=== PATIENT | female | born 2005 | race Caucasian/White ===

== ENCOUNTER 2024-01-08 10:30 | Emergency (ER) | payer OTHER, SELFPAY ==
[2024-01-08 10:31] VITALS: BP 123/73; PULSE 91; RESP 16; TEMP 36.5; O2SAT 99
--- NOTE | 2024-01-08 10:41 | CT_ITS ---
STUDY: CT ABDOMEN AND PELVIS WITH CONTRAST REASON FOR EXAM: Female, 18 years old. RUQ abd pain RADIATION DOSAGE (If Supplied By Facility): CTDIvol = ( 12.42 ) mGy, DLP = ( 789.05 ) mGycm TECHNIQUE: IV 75mL Isovue-300 was administered. Transaxial images were obtained from the dome of the diaphragm to the symphysis pubis. Multiplanar coronal and sagittal images were reformatted. The protocol utilizes one or more of the following dose reduction techniques: automated exposure control, adjustment of mA and/or kV according to patient size,and/or use of iterative reconstruction technique. COMPARISON: No relevant prior comparison study available FINDINGS: The visualized lung bases are unremarkable. The visualized portions of the heart are within normal limits. Normal liver. Normal gallbladder and extrahepatic biliary system. Normal spleen. Normal pancreas. Normal bilateral adrenal glands. Distended stomach. Nonspecific fluid-filled small bowel loops without evidence of bowel obstruction. Ascending colon is also fluid-filled. Fecal retention. No evidence of acute diverticulitis. The appendix is visualized and appears normal. Normal abdominal aorta. No retroperitoneal adenopathy. Normal right kidney. Normal left kidney. Normal urinary bladder. No pelvic mass. Trace of free fluid in the pelvis. Normal abdominal wall. No demonstrated acute osseous changes. Small posterior spur at the level of T10-T11. CT/Abdomen/Pelvis W IV Cont ONLY IMPRESSION: 1. Nonspecific fluid-filled small bowel loops without evidence of small bowel obstruction could be due to enteritis or enterocolitis. 2. Distended stomach. 3. Otherwise no focal acute inflammatory process. Electronically Signed: Fernando Wright MD at 11:21 EDT ,
--- NOTE | 2024-01-08 10:42 | ED.VIS.GI ---
HPI HPI - GI History of Present Illness Chief Complaint: Abd Pain Informant: patient and parent Abdominal Pain/Flank Pain Onset: Today and Hours Context: Gradual Onset Timing: Intermittent Quality: Aching Location: RUQ Current Severity: Mild Maximum Severity: Mild Relieved by: Nothing Nausea/Vomiting/Emesis GI Symptom: Positive for Nausea Severity: Mild Diarrhea/Melena/Hematochezia GI Symptom: Negative for Diarrhea, Melena or Hematochezia Associated Symptoms Associated Symptoms: Negative for Dysuria, Frequency, Hematuria or Urgency Narrative Narrative: Healthy 8-year-old female. No prior abdominal surgeries. Today around 7 AM about 3 to 4 hours ago started having right upper quadrant abdominal pain. Worse with movement. Initially associated nausea. No vomiting or diarrhea. No constipation. Nausea is resolved. No fever or chills. No recent weight loss. No recent injury. No recent postprandial abdominal pain. She has never had any prior abdominal surgeries. Denies any dysuria. No vaginal bleeding or discharge. Last menstrual period about 3 weeks ago. No back pain. Prior similar symptoms: No Recent Illness/Hospitalization: No PFSH PFSH Medical History no medical history no medical history Home Medications ?Medication ?Instructions ?Recorded ?Last Taken ?Type NK 01/08/24 Unknown History Allergy/AdvReac Type Severity Reaction Status Date / Time No Known Allergies Allergy Verified 01/08/24 10:30 Surgical History no surgical history no surgical history Social History Smoking Status: Never smoker ROS ROS ED ROS Narrative Right upper quadrant abdominal pain. Constitutional Constitutional ED: Denies chills ENT ENT ED: Denies ear pain Cardiovascular Cardiovascular: Denies chest pain Respiratory/Chest Respiratory/Chest: Denies cough or dyspnea Gastrointestinal Gastrointestinal: Reports abdominal pain and nausea; Denies constipation, diarrhea, melena or vomiting Genitourinary Genitourinary ED: Denies dysuria, hematuria or urinary frequency Musculoskeletal Musculoskeletal: Denies arthralgias or back pain Integumentary Denies abscess or Abrasions Neurologic Neurologic: Denies headache(s) Psychiatric Psychiatric: Denies anxiety or depression Endocrine Endocrinology: Denies polydipsia Hematologic/Lymphatic Hematologic/Lymphatic: Denies easy bleeding or easy bruising Allergic/Immunologic Allergic/Immunologic ED: Denies mouth swelling, tongue swelling or urticaria EXAM Physical Exam Narrative Exam Narrative: 18-year-old female vital signs stable afebrile. H EENT exam unremarkable. Neck nontender no lymphadenopathy. Lungs clear to auscultation bilaterally. Heart regular rhythm no murmur rate about 90. Chest wall ribs nontender. Abdomen soft, nontender, nondistended, normal bowel sounds without peritoneal signs. She really has no Kerns sign. Minimal at best tenderness with deep palpation underneath her right rib cage. There is no chest wall pain. Left abdomen and right lower quadrant are completely nontender. There is no hernia or mass. No signs of trauma. No McBurney's point tenderness. Moving all 4 extremities. Nontender no edema. Back nontender. Neurologically patient is awake and alert no focal motor deficits. Const Vital Signs: 01/08/24 10:31 01/08/24 12:30 Temperature 97.7 F L Temperature Source Temporal Pulse Rate 91 64 Respiratory Rate 16 16 Blood Pressure 123/73 H 117/61 Blood Pressure Mean 89 79 Pulse Ox 99 97 Oxygen Delivery Method Room Air Room Air Positive well nourished and well developed; Negative for obese, cachectic, contractures or unkempt General Appearance ED: well developed and NAD; Negative for unkempt, cachectic, contractures or pallor Nutritional Appearance: Negative for cachectic or obese HEENT Reports moist mucous membranes normocephalic and atraumatic Eyes PERRL and EOMs intact bilaterally General Eye ED: Negative for pale conjunctiva Neck no lymphadenopathy, supple and no JVD General: Negative for tenderness Resp normal respiratory effort and clear to auscultation bilaterally Cardio regular rate, regular rhythm, S1 normal heart sound, S2 normal heart sound and no murmurs GI non-tender and no masses GI Narrative: Minimal if any tenderness with deep palpation to the right upper quadrant underneath the right rib cage. Rib cage cells nontender. No Kerns sign. No McBurney's point tenderness. No hernia or mass. No distention. No signs of trauma. The rest of the abdomen is completely nontender. Auscultation: normoactive bowel sounds Palpation: soft; Negative for guarding or rebound tenderness present Back/Spine no CVA tenderness General Back: Negative for CVA tenderness Cervical Spine: Negative for cervical spine tenderness Thoracic Spine / Upper Back: Negative for thoracic spinal tenderness Lumbar Spine / Lower Back: Negative for lumbar spinal tenderness Extremity full ROM General Extremety ED: Negative for edema or tenderness General Extremity: Negative for edema Neuro CN's II-XII intact bilaterally and moves all extremities Sensorium / Orientation: alert, oriented to person, oriented to place and oriented to time; Negative for orientation impaired, confused, lethargic or stuporous Motor Exam: strength 5/5 throughout Psych mental status grossly normal and thought process normal Appearance: Negative for unkempt Attitude: No agitated Mood & Affect: Negative for depressed, anxious or tearful Skin no wounds General Skin Exam: Negative for jaundice or pallor Lesions: no lesions Rashes: no rashes Trauma: Negative for abrasion Nails: Negative for discolored MDM MDM MDM Narrative Medical decision making narrative: 18-year-old female right upper quadrant abdominal pain today for several hours. Initially associated nausea but no vomiting or diarrhea. No constipation or dysuria. No trauma. CAT scan and labs are being obtained. She has never had this pain before. Potentially could be gallbladder or liver. I do not think it is pancreatitis. It does not appear to be gastritis. It is nowhere near the anatomical position of her appendix. There is no signs of bowel obstruction. Patient ambulated to the bathroom to give a urine sample. Had increased pain and nausea. Was given Toradol and Zofran. Initial workup was negative except for the elevated white count. I will obtain a ultrasound of her right upper quadrant since the CAT scan did not show anything obvious with her gallbladder or liver. Repeat exam patient is doing well at 12:54 PM. We discussed test results and the CAT scan and ultrasound results. They are comfortable with her being discharged home with outpatient follow-up. History & Record Review Discussion w/independent historian: Patient Lab Data Attestation: I reviewed the patient's lab results. Lab results narrative: CBC shows no a white count of 15.1. H&H 15 and 44. Platelets 245. Electrolytes unremarkable. Gap 5. Normal BUN and creatinine 13 and 0.7. Liver enzymes normal. Lipase normal at 32. Serum test negative. UA negative. CAT scan abdomen no acute abnormality. Labs: Laboratory Results - last 24 hr 01/08/24 01/08/24 10:40 10:45 WBC 15.1 H RBC 5.06 Hgb 15.0 Hct 44.1 MCV 87.2 MCH 29.6 MCHC 34.0 RDW Std Deviation 39.2 RDW Coeff of Shanthi 12.3 Plt Count 245 MPV 9.9 Immature Gran % (Auto) 0.700 Neut % (Auto) 81.2 H Lymph % (Auto) 11.4 L Davis % (Auto) 5.6 Eos % (Auto) 0.7 Baso % (Auto) 0.4 Absolute Neuts (auto) 12.3 H Absolute Lymphs (auto) 1.73 Nucleated RBC % 0 Sodium 140 Potassium 3.9 Chloride 109 H Carbon Dioxide 26.0 Anion Gap 5 BUN 13 Creatinine 0.72 Estim Creat Clear Calc 137.62 Est GFR (MDRD) Af Amer 134 Est GFR (MDRD) Non-Af 111 BUN/Creatinine Ratio 18.1 Glucose 97 Calcium 9.3 Total Bilirubin 0.70 AST 19 ALT 39 Alkaline Phosphatase 61 Total Protein 7.8 Albumin 4.3 Globulin 3.5 Albumin/Globulin Ratio 1.2 Lipase 32 Serum , Qual NEGATIVE Urine Color Yellow Urine Clarity Clear Urine pH 6.0 Ur Specific Collins 1.005 Urine Protein Negative Urine Glucose (UA) Normal Urine Ketones Negative Urine Occult Blood Negative Urine Nitrite Negative Urine Bilirubin Negative Urine Urobilinogen Normal Ur Leukocyte Esterase Negative Urine RBC 0 SEEN Urine WBC 0 SEEN Ur Squamous Epith Cells 0-5 SEEN Urine Bacteria 0 SEEN Urine Mucus 0 SEEN Radiography Diagnostic Testing: Clinical Impression(s) from Imaging Studies Abdomen/Pelvis CT 01/08/24 10:41 IMPRESSION: 1. Nonspecific fluid-filled small bowel loops without evidence of small bowel obstruction could be due to enteritis or enterocolitis. 2. Distended stomach. 3. Otherwise no focal acute inflammatory process. Electronically Signed: Fernando Wright MD at 11:21 EDT , Gallbladder Ultrasound 01/08/24 11:42 IMPRESSION: No acute sonographic abnormality is demonstrated in the right upper quadrant. Electronically Signed: Fernando Wright MD at 12:30 EDT , Discharge Plan Triage Chief Complaint: Abd Pain ED Provider: Kj Coleman Dx/Rx/DC Orders Clinical Impression: Abdominal pain Instructions: ED Abdominal Pain Unkn Cause Fem Prescriptions: No Action NK Primary Care Provider: Care Physician,No Primary Referrals: NOT,DEFINED [Non-Staff] - Activity Restrictions/Additional Instructions: CAT scan labs look good. So does your ultrasound your gallbladder. Tylenol and Motrin for pain. Fluids and rest. Follow-up if not improving. Print Language: Romanian Disposition Disposition: Home, Self Care
[2024-01-08 10:51] LABS: Absolute Lymphocyte Count 1.73 X10^3/uL (0.83-4.51); Absolute Neutrophil Count 12.3 X10^3/uL (2.0-7.7); Basophil# 0.06 X10^3/uL; Basophil% 0.4 % (0-1); Eosinophils% 0.7 % (0-5); Hematocrit 44.1 % (37-47); Lymphocyte # 1.73 X10^3/ul (0.83-4.51); Lymphocyte % 11.4 % (19-41); Mean Corpuscular Hgb 29.6 pg (27.0-32.0); Mean Corpuscular Volume 87.2 fL (81-99); Mean Platelet Vol. 9.9 fl (6.2-12.0); Monocyte# 0.85 X10^3/uL; Monocyte% 5.6 % (0-10); NRBC Flagged by Analyzer 0 % (0-5); Neutrophil # 12.29 X10^3/uL (2.7-7.7); Neutrophil % 81.2 % (47-70); Platelet Count 245 K/mm3 (150-450); RBC Distribution Width CV 12.3 % (11.6-14.6); RBC Distribution Width SD 39.2 fl (35.1-43.9); Red Blood Count 5.06 M/mm3 (4.2-5.4); White Blood Count 15.1 K/mm3 (4.4-11.0)
[2024-01-08 10:53] LABS: Bacteria 0 SEEN /hpf (None Seen); Mucous, Urine 0 SEEN /hpf (<or=2+); Red Blood Cells-Urine 0 SEEN /hpf (0-5); White Blood Cells 0 SEEN /hpf (0-5)
[2024-01-08] MEDS: Ondansetron 4 MG/2 ML Vial IV (11:06)
[2024-01-08] MEDS: Ketorolac 30 MG/ML Syringe IV (11:07)
[2024-01-08 11:09] LABS: Color, Urine Yellow (Yellow); Glucose, Dipstick Normal (Normal); Ketone-Dipstick Negative (Negative); Leukocyte Esterase-Dipstick Negative /ul (Negative); Nitrite-Dipstick Negative (Negative); Occult Blood-Urine Negative /ul (Negative); Protein-Dipstick Negative (Negative); Specific Gravity, Urine 1.005 (1.002-1.030); Urine Bilirubin Dipstick Negative (Negative); Urine Clarity Clear (Clear); Urine Urobilinogen Normal (Normal)
[2024-01-08 11:11] LABS: Internal QC Validated? YES +Cl - CLEAR BKGD; Pregnancy, Serum, hCG Quali. NEGATIVE Negative
[2024-01-08 11:17] LABS: Squamous Epithelial Cells - UA 0-5 SEEN /hpf (5-10)
[2024-01-08 11:19] LABS: ALB/GLOB Ratio 1.2 RATIO (0.9-2.4); AST(SGOT) 19 U/L (15-37); Alanine Aminotransfer ALT/SGPT 39 U/L (13-56); Albumin, Serum 4.3 g/dL (3.2-5.0); Alkaline Phosphatase 61 U/L (45-117); Anion Gap 5 (5-15); BUN 13 mg/dL (7-18); BUN/Creat Ratio 18.1 RATIO (10-20); Calcium,Total 9.3 mg/dL (8.5-10.1); Chloride 109 mmol/L (98-107); Creatinine, Serum 0.72 mg/dL (0.55-1.02); EST Glomerular Filtration Rate 111 mL/min (>60); Est Glom Filt Rate - Afr Amer 134 mL/min (>60); Estimated Creatinine Clearance 137.62 ml/min; Globulin 3.5 g/dL (2.2-4.2); Glucose 97 mg/dL (74-106); Lipase 32 U/L (13-75); Potassium 3.9 mmol/L (3.5-5.1); Protein, Total 7.8 g/dL (6.4-8.2); Sodium Level 140 mmol/L (136-145)
--- NOTE | 2024-01-08 11:42 | US_ITS ---
INDICATION: RUQ abd pain EXAMINATION: Ultrasound US Abdomen Limited (quadrant) TECHNIQUE: Tran scale and color doppler imaging was performed of the right upper quadrant. COMPARISON: CT scan of the abdomen and pelvis of the same day. FINDINGS: LIVER: There is normal echotexture and size measuring about 15 cm in length. The portal vein is patent with normal hepatopedal flow. No focal hepatic lesion. There is no free fluid. GALLBLADDER AND BILIARY TREE: No shadowing gallstone, pericholecystic fluid or gallbladder wall thickening is demonstrated. The gallbladder wall measures about 2.3 mm. The proximal common bile duct measures 3.5 mm, which is within normal limits for the patient''s age. Sonographic Kerns''s sign: Negative. PANCREAS: No focal abnormality is demonstrated in the pancreas. No pancreatic ductal dilatation. Right kidney: The right kidney measures 12.1 cm in length. The renal cortex measures 1 cm. No evidence of hydronephrosis. US/Gallbladder IMPRESSION: No acute sonographic abnormality is demonstrated in the right upper quadrant. Electronically Signed: Fernando Wright MD at 12:30 EDT ,
[2024-01-08 12:30] VITALS: BP 117/61; PULSE 64; RESP 16; O2SAT 97
[2024-01-08 12:55] VITALS: BP 105/84; PULSE 65; RESP 13; TEMP 36.2; O2SAT 97
== END 2024-01-08 13:03 | disposition home or self-care (01) ==
PROVIDERS: Emergency Provider Emergency Medicine; Visit Provider Emergency Medicine
DX: R10.11 Right upper quadrant pain (principal); R11.2 Nausea with vomiting, unspecified
CPT/HCPCS: 74177; 76705; 80053; 81001; 83690; 84703; 85025; 96374; 96375; 99283; Q9967; A4216; J2405